=== PATIENT | male | born 1965 | race Caucasian/White ===

== ENCOUNTER 2018-09-21 08:34 | Emergency (ER) | payer OTHER ==
--- NOTE | 2018-09-21 09:31 | EDPHY ---
H & P Time Seen by Provider: 09/21/18 09:25 HPI/ROS: Chief complaint. Shoulder pain HPI. 53-year-old male presents emergency department with left neck and shoulder pain since 5:00 a.m.. It feels stay that it comes in spasms and waves. He was lying in bed and could not get comfortable as the spasms were bothering him. He has chronic neck pain and was seen at urgent care about 1 week ago and was started on steroid taper which he finished this morning. His massaged or rub the area last night. His symptoms come in waves. It is worse with moving his head or left arm. No injury or unusual activity. Denies chest discomfort or shortness of breath. No fever. The patient can squeeze the area between the neck and shoulder and feels better for few seconds and then seems to make it worse. No unusual leg pain or swelling. His chronic neck pain has been worse with stress after starting a new job about 3 months ago ROS 10 systems were reviewed and negative with the exception of the elements mentioned in the history of present illness Past Medical/Surgical History: Past medical history is significant for chronic neck pain. Denies family history of early cardiac disease Social History: , nonsmoker, no alcohol Smoking Status: Never smoked Physical Exam: General Appearance: Alert well-developed male moderate distress vital signs are stable Eyes: Pupils equal and round no pallor or injection. ENT, Mouth: Mucous membranes are moist. Respiratory: There are no retractions, lungs are clear to auscultation. Cardiovascular: Regular rate and rhythm. Gastrointestinal: Abdomen is soft and nontender, no masses, bowel sounds normal. Neurological: Awake and alert, sensory and motor exams grossly normal. Skin: Warm and dry, no rashes. Musculoskeletal: Neck is supple nontender. Tenderness along the trapezius muscle. It does hurt to squeeze and palpation Extremities symmetrical, full range of motion. Psychiatric: Patient is oriented X 3, there is no agitation. Constitutional: Initial Vital Signs Temperature (C) 36.8 C 09/21/18 08:38 Heart Rate 71 09/21/18 08:38 Respiratory Rate 18 09/21/18 08:38 Blood Pressure 137/85 H 09/21/18 08:38 O2 Sat (%) 96 09/21/18 08:38 O2 Delivery Mode Room Air Allergies/Adverse Reactions: No Known Allergies Allergy (Unverified 09/21/18 08:37) Home Medications: Medication Instructions Recorded Cyclobenzaprine [Flexeril 10 MG 10 mg PO TID PRN #15 tab 09/21/18 (*)] Prednisone 09/21/18 Medical Decision Making - Diagnostics EKG Interpretation: EKG interpreted by me shows normal sinus rhythm normal interval. Left axis deviation possible old inferior ME. No arrhythmia. No significant ST elevation or depression. Rate is 65 No previous EKGs for comparison Procedures: IV normal saline, monitor. Patient is offered medication for pain and muscle spasm but declines currently ED Course/Re-evaluation: Serial re-evaluations and re-evaluation again at 10:50 a.m.. Patient is stable. He really has no pain or symptoms at this point in time. The patient, his , and I discussed laboratory evaluation and EKG findings. We discussed treatment plan including criteria for return and importance of follow-up. They expressed understanding and agreement. He feels well to be discharged. Differential Diagnosis: This appears to be muscle spasm. He has tenderness to the trapezius muscle with palpation. He has no chest discomfort or shortness of breath. While his EKG isn't quite normal we do not have an old EKG for him. He however has no chest pain and his troponin is normal. - Data Points Laboratory Results: Laboratory Results 09/21/18 08:50 09/21/18 08:50 09/21/18 09/21/18 09/21/18 08:56 08:50 08:50 WBC 14.10 10^3/uL H 10^3/uL (3.80-9.50) RBC 4.99 10^6/uL 10^6/uL (4.40-6.38) Hgb 15.1 g/dL g/dL (13.7-17.5) Hct 44.2 % % (40.0-51.0) MCV 88.6 fL fL (81.5-99.8) MCH 30.3 pg pg (27.9-34.1) MCHC 34.2 g/dL g/dL (32.4-36.7) RDW 13.8 % % (11.5-15.2) Plt Count 304 10^3/uL 10^3/uL (150-400) MPV 9.3 fL fL (8.7-11.7) Neut % (Auto) 79.0 % H % (39.3-74.2) Lymph % (Auto) 12.9 % L % (15.0-45.0) [place] % (Auto) 6.2 % % (4.5-13.0) Eos % (Auto) 0.6 % % (0.6-7.6) Baso % (Auto) 0.4 % % (0.3-1.7) Nucleat RBC Rel Count 0.0 % % (0.0-0.2) Absolute Neuts (auto) 11.12 10^3/uL H 10^3/uL (1.70-6.50) Absolute Lymphs (auto) 1.82 10^3/uL 10^3/uL (1.00-3.00) Absolute Monos (auto) 0.88 10^3/uL H 10^3/uL (0.30-0.80) Absolute Eos (auto) 0.09 10^3/uL 10^3/uL (0.03-0.40) Absolute Basos (auto) 0.06 10^3/uL 10^3/uL (0.02-0.10) Absolute Nucleated RBC 0.00 10^3/uL 10^3/uL (0-0.01) Immature Gran % 0.9 % % (0.0-1.1) Immature Gran # 0.13 10^3/uL H 10^3/uL (0.00-0.10) Sodium 140 mEq/L mEq/L (135-145) Potassium 3.2 mEq/L L mEq/L (3.3-5.0) Chloride 103 mEq/L mEq/L (97-110) Carbon Dioxide 29 mEq/l mEq/l (22-31) Anion Gap 8 mEq/L mEq/L (6-14) BUN 17 mg/dL mg/dL (7-23) Creatinine 0.9 mg/dL mg/dL (0.7-1.3) Estimated GFR > 60 Glucose 143 mg/dL H mg/dL (70-100) Calcium 9.2 mg/dL mg/dL (8.5-10.4) POC Troponin I 0.00 ng/mL ng/mL (0.00-0.08) Point of Care Test Results: Chemistry 09/21/18 08:56 POC Troponin I 0.00 ng/mL ng/mL (0.00-0.08) Departure - Departure Disposition: Home, Routine, Self-Care Clinical Impression: Shoulder pain, acute Qualifiers: Laterality: left Qualified Code(s): M25.512 - Pain in left shoulder Condition: Good Instructions: Shoulder Pain (ED) Additional Instructions: Ice to sore area of your left neck and shoulder next 24 hr. Then may apply heat. Ibuprofen or Aleve as recommended Hydrocodone in addition for pain if necessary Flexeril as muscle relaxer. Return for worsening symptoms including fever, chest discomfort, trouble breathing Recheck in 2-3 days if not improving Referrals: Valentin Hanson MD [Primary Care Provider] - 2-3 days, if not improved Prescriptions: Cyclobenzaprine [Flexeril 10 MG (*)] 10 mg PO TID PRN #15 tab PRN Reason: Spasms
--- NOTE | 2018-09-21 09:48 | CPEKG ---
Test Reason : OPEN Blood Pressure : / mmHG Vent. Rate : 065 BPM Atrial Rate : 063 BPM P-R Int : 172 ms QRS Dur : 108 ms QT Int : 404 ms P-R-T Axes : 040 -21 017 degrees QTc Int : 421 ms Sinus rhythm Left ventricular hypertrophy Inferior infarct, old Confirmed by Subhash Preciado ([id number]) on 09/21/2018 9:48:18 AM Referred By: Confirmed By:Subhash Preciado
[2018-09-21 10:06] LABS: PLATELET COUNT 304 10^3/uL (150-400)
[2018-09-21 11:16] VITALS: BP 154/99
== END 2018-09-21 11:16 | disposition home or self-care (01) ==
DX: M25.512 Pain in left shoulder (principal); M54.2 Cervicalgia
CPT/HCPCS: 84484-PO